=== PATIENT | female | born 1985 | race Hispanic/Latino ===

== ENCOUNTER 2023-01-02 09:55 | Day surgery (SDC) | payer OTHER ==
[2022-12-31 14:27] VITALS: BMI 54.8
[2023-01-02] MEDS ORDERED: Lidocaine 1% PF 5 ML VIAL ONE (11:48)
[2023-01-02] MEDS ORDERED: PROPOFOL 200 MG/20 ML VIAL ONE (11:48)
== END 2023-01-02 13:10 | disposition home or self-care (01) ==
LOC: SDC 09:55
PROVIDERS: ATTEND Internal Medicine Gastroenterology
PROC: 0DB98ZX Excision of Duodenum, Via Natural or Artificial Opening Endoscopic, Diagnostic (ICD-10-PCS; principal; 2023-01-02)
PROC: 0DBH8ZX Excision of Cecum, Via Natural or Artificial Opening Endoscopic, Diagnostic (ICD-10-PCS; 2023-01-02)
PROC: 0DB38ZX Excision of Lower Esophagus, Via Natural or Artificial Opening Endoscopic, Diagnostic (ICD-10-PCS; 2023-01-02)
PROC: 0DBP8ZX Excision of Rectum, Via Natural or Artificial Opening Endoscopic, Diagnostic (ICD-10-PCS; 2023-01-02)
PROC: 0DBN8ZX Excision of Sigmoid Colon, Via Natural or Artificial Opening Endoscopic, Diagnostic (ICD-10-PCS; 2023-01-02)
DX: D50.9 Iron deficiency anemia, unspecified (principal); K63.5 Polyp of colon; K64.8 Other hemorrhoids; K62.89 Other specified diseases of anus and rectum; K20.90 Esophagitis, unspecified without bleeding; E66.9 Obesity, unspecified; Z68.43 Body mass index [BMI] 50.0-59.9, adult; Z79.899 Other long term (current) drug therapy; Z98.84 Bariatric surgery status
CPT/HCPCS: 88300; 88305; J2704

== ENCOUNTER 2023-01-10 08:02 | Outpatient (CLI) | payer OTHER ==
[2023-01-10] MEDS ORDERED: Iopamidol 370 76% 100 ML VIAL ONE (09:56)
[2023-01-10] MEDS ORDERED: GASTROGRAFIN 30 ML BOT ONE (09:56)
== END 2023-01-10 08:03 | disposition home or self-care (01) ==
LOC: CT 08:02
PROVIDERS: ATTEND Internal Medicine Gastroenterology
DX: D12.1 Benign neoplasm of appendix (principal); K66.8 Other specified disorders of peritoneum; R16.0 Hepatomegaly, not elsewhere classified
CPT/HCPCS: 74177; Q9963; Q9967

== ENCOUNTER 2023-02-04 08:37 | Day surgery (SDC) | payer OTHER ==
[2023-02-03 14:40] VITALS: BMI 54.8
[2023-02-04 08:51] LABS: #Basophils 0.1 thou/uL (0.0-0.2); #Eosinphils 0.1 thou/uL (0.0-0.7); #Monocytes 0.4 thou/uL (0.11-0.59); %Basophils 0.6 % (0.0-1.0); %Eosinophils 1.5 % (0.0-10.0); %Lymphocytes 17.6 % (21.0-51.0); %Monocytes 4.9 % (0.0-10.0); Hemoglobin 10.6 g/dL (12.0-16.0); Mean Corpuscular HGB CONC 29.9 g/dL (32.0-36.0); Mean Corpuscular Hemoglobin 26.7 pg (27.0-31.0); Mean Corpuscular Volume 89.4 fl (78.0-98.0); Mean Platelet Volume 10.2 fL (7.4-10.4); Platelet Count 268 10x3/uL (130-400); RBC Distribution Width 13.5 % (11.5-14.5); Red Blood Cell (RBC) Count 3.97 mill/uL (4.20-5.40)
[2023-02-04 09:27] LABS: INR-International Normal Ratio 1.1; PTT 31.9 sec (22.9-36.1); Prothrombin Time 14.7 sec (12.0-14.7)
[2023-02-04 11:45] VITALS: BP 126/78; TEMP 98.3
== END 2023-02-04 14:30 | disposition home or self-care (01) ==
LOC: CT 08:37
PROVIDERS: ATTEND Surgery
DX: C22.4 Other sarcomas of liver (principal); D49.89 Neoplasm of unspecified behavior of other specified sites; I10 Essential (primary) hypertension
CPT/HCPCS: 47000; 77012; 85025; 85610; 85730; 88307; 88333; 88334; 88341; 88342; 88360